=== PATIENT | male | born 1970 | race African-American/Black ===

== ENCOUNTER 2022-06-22 15:37 | Emergency (ER) | payer OTHER ==
[2022-06-22 16:06] VITALS: TEMP 97.7
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
[2022-06-22] MEDS ORDERED: TOPICAL SKIN ADHESIVE 1 EACH AMP TOPICAL ONE (17:37)
[2022-06-22 18:18] VITALS: BP 130/76; PULSE 80; RESP 18
== END 2022-06-22 18:18 | disposition home or self-care (01) ==
LOC: EC 15:37
DX: S01.311A Laceration without foreign body of right ear, initial encounter (principal); S16.1XXA Strain of muscle, fascia and tendon at neck level, initial encounter; S00.03XA Contusion of scalp, initial encounter; V47.5XXA Car driver injured in collision with fixed or stationary object in traffic accident, initial encounter; Y92.89 Other specified places as the place of occurrence of the external cause
CPT/HCPCS: 12011; 70450; 72125; 99284